=== PATIENT | female | born 1970 | race Caucasian/White ===

== ENCOUNTER → 2016-12-02 | Outpatient (CLI) | payer OTHER ==
[~2016-12-02] MED LIST: ADVAIR HFA120 INHALA IH; BACTRIM,SEPT1 TABLET PO; BASAGLAR K100 UNIT/1 SC; BENADRYL25 MG PO; BENZONATATE100 MG PO; BIOTIN1000 MICRO PO; CLONAZEPAM0.5 MG PO; CYMBALTA60 MG PO; Cymbalta PO; DESYREL 150 MG150 MG PO; DUONEB 2.5-0.5 M3 ML IH; FIORICET 50-301 EACH PO; FLONASE16 G1 BOTH NARES; FLUOXETINE HCL40 MG PO; Glucophage PO; HYDROMORPHONE HC2 MG PO; IBUPROFEN800 MG PO; JANUMET 50/11 TABLET PO; JANUMET 50/51 TABLET PO; JANUMET XR 1001 EACH PO; LANTUS 10100 UNITS/ SC; LANTUS 3 M100 UNITS1 SC; LEVAQUIN750 MG PO; LIPITOR40 MG PO; MELATONIN5 M1 PO; MULTIVITAMIN1 EAC2 PO; NOVOLOG PE100 UNITS/ SC; OMEGA 3-6-9 11200 MG PO; OMEGA 3-6-91200 MG PO; OMEPRAZOLE40 M1 PO; PREDNISONE10 MG PO; PREDNISONE20 MG PO; PROAIR HFA8.5 GM IH; RANITIDINE HCL300 MG PO; SINGULAIR10 MG PO; SUDAFED 12-HOU120 MG PO; Singulair PO; TESSALON PERLE100 MG PO; TRAZODONE HCL100 MG PO; VITAMIN C500 M1 PO; VITAMIN D1000 UNIT PO; Vitamin D PO; Zocor PO
== END | disposition home or self-care (01) ==
LOC: CDC
DX: R94.31 Abnormal electrocardiogram [ECG] [EKG] (principal); N75.1 Abscess of Bartholin's gland
CPT/HCPCS: 93000

== ENCOUNTER 2016-12-07 08:39 | Day surgery (SDC) | payer OTHER ==
[~2016-12-07] VITALS: Ht 165.1 cm; Wt 127.0 kg
[~2016-12-07 08:39] MED LIST changes: -HYDROMORPHONE HC2 MG PO; -IBUPROFEN800 MG PO
[2016-12-07 09:16] VITALS: BP 133/76
[2016-12-07] MEDS ORDERED: HYDROMORPHONE HC2 MG PO (11:45)
[2016-12-07] MEDS ORDERED: IBUPROFEN800 MG PO (11:45)
[2016-12-07 13:20] VITALS: BP 120/65
[2016-12-07 14:40] VITALS: BP 122/63
== END 2016-12-07 15:11 | disposition home or self-care (01) ==
LOC: SDC 08:39
PROVIDERS: Obstetrics & Gynecology
PROC: 0U9L0ZZ Drainage of Vestibular Gland, Open Approach (ICD-10-PCS; principal; 2016-12-07)
DX: N75.1 Abscess of Bartholin's gland (principal); E11.9 Type 2 diabetes mellitus without complications; Z79.4 Long term (current) use of insulin; J45.909 Unspecified asthma, uncomplicated; H91.93 Unspecified hearing loss, bilateral; F32.9 Major depressive disorder, single episode, unspecified; F41.1 Generalized anxiety disorder; M79.7 Fibromyalgia; E78.5 Hyperlipidemia, unspecified; K58.0 Irritable bowel syndrome with diarrhea; E66.01 Morbid (severe) obesity due to excess calories; Z68.41 Body mass index [BMI] 40.0-44.9, adult; G47.33 Obstructive sleep apnea (adult) (pediatric); Z80.8 Family history of malignant neoplasm of other organs or systems; Z80.3 Family history of malignant neoplasm of breast; Z83.3 Family history of diabetes mellitus; Z88.1 Allergy status to other antibiotic agents; Z88.5 Allergy status to narcotic agent; Z88.8 Allergy status to other drugs, medicaments and biological substances
CPT/HCPCS: 82948; 85025; 86850; 86900; 86901; 87075; 87076; 87205; J0131; J0690; J1100; J1885; J2250; J2405; J3010